=== PATIENT | male | born 2000 | race Caucasian/White ===

== ENCOUNTER 2022-08-18 13:22 | Outpatient (CLI) | payer OTHER, SELFPAY ==
[2022-08-18 16:15] LABS: Vitamin D 25 Hydroxy* 15 ng/mL (30-80)
== END 2022-08-18 13:23 | disposition home or self-care (01) ==
LOC: NFLDREF 13:23
PROVIDERS: Visit Provider Nurse Practitioner Family
DX: Z79.899 Other long term (current) drug therapy (principal)
CPT/HCPCS: 82306; 84443

== ENCOUNTER 2025-03-29 15:20 | Outpatient (CLI) | payer OTHER, SELFPAY | END 2025-03-29 15:21 | disposition home or self-care (01) | LOC: NFLDREF 04-03 14:23 | PROVIDERS: PCP Physician Assistant Medical; Visit Provider Physician Assistant Medical | DX: I10 Essential (primary) hypertension (principal); E55.9 Vitamin D deficiency, unspecified; E03.9 Hypothyroidism, unspecified; R79.89 Other specified abnormal findings of blood chemistry; F90.0 Attention-deficit hyperactivity disorder, predominantly inattentive type; F90.9 Attention-deficit hyperactivity disorder, unspecified type | CPT/HCPCS: 80053; 80061; 82306; 84443 ==

== ENCOUNTER 2025-05-01 13:13 | Outpatient (CLI) | payer OTHER, SELFPAY | END 2025-05-01 13:14 | disposition home or self-care (01) | LOC: FRMREF 13:13 | PROVIDERS: PCP Physician Assistant Medical; Visit Provider Physician Assistant Medical | DX: I10 Essential (primary) hypertension (principal) | CPT/HCPCS: 80048 ==